=== PATIENT | female | born 1960 | race Caucasian/White ===

== ENCOUNTER → 2016-08-26 | Day surgery (SDC) | payer OTHER ==
[2016-08-20 13:50] VITALS: Ht 165.1 cm; Wt 131.8 kg
[~2016-08-26] VITALS: Ht 165.1 cm; Wt 131.8 kg
[~2016-08-26] MED LIST: ALBU1AER9 INH; ASPI81TA82 PO; ATOR-24 PO; BUSP-8 PO; CALC500C70 PO; CLON0.5T3 PO; COQ10 PO; CYM60 PO; FENTANYL CITRATE INJ 50 MCG/1 ML 2 ML VIAL ONE; FLAX1CAP11 PO; GABA-112 PO; GABA1CAP PO; GLUCTAB7 PO; LAMO150T32 PO; LIDOCAINE HCL 2% 2 ML VIAL (20MG/ML) ONE; OLIV500C PO; PROPOFOL IV EMULSION 10 MG/ML 20 ML VIAL IV ONE; SODIUM CHLORIDE 0.9% 500ML 500 ML IV ONE
--- NOTE | 2016-08-26 08:21 | Endo History and Physical ---
History & Physical Date of Service: August 26, 2016. Chief Complaint: Hx Polyps Referring Physician: Anne Valdez History of Present Illness 56 yo presenting for f/u Colonoscopy after procedure performed in 2016 with one polyp and suboptimal preparation. Past Medical History Other Psy. Disorders, Anxiety, High Cholesterol, Sleep Apnea, Depression Past Surgical History Hx Cardiac Surgery: No Hx Internal Defibrillator: No Hx Pacemaker: No Hx Abdominal Surgery: Yes (TUBAL LIGATION) Hx Post-Op Nausea and Vomiting: No Hx Cancer Surgery: No Hx Thoracic Surgery: No Hx Orthopedic: No Hx Urinary Tract Surgery: No Family History None Social History Smoking Status: Never Smoker Hx Substance Use: No Hx Alcohol Use: Yes (VERY RARELY) Allergies Coded Allergies: Sulfa Drugs (Unverified Allergy, Mild, RASH ON BACK, 08/20/16) Current Medications Reported Home Medications Medications Dose Route/Sig Max Daily Dose Days Date Category [place] Extract ([place] (Elton Europaea)) 1 Cap Cap 1 Cap PO QAM 08/20/16 Reported Glucosamine Chondroitin (Zztkdmzmwfg-Mswhkmxdkve-Lly C-) 1 Tab Tab 1 Tab PO QAM 08/20/16 Reported [Coq10] 1 Cap PO QAM 08/20/16 Reported Flax Seed Oil (Flaxseed (Linseed)) 1 Cap Cap 1 Cap PO BID 08/20/16 Reported Lamictal (Lamotrigine) 150 Mg Tab 150 Mg PO BID 08/20/16 Reported Neurontin (Gabapentin) 100 Mg Cap 200 Mg PO HS 08/20/16 Reported Buspirone Hcl 10 Mg Tab 1.5 Tab PO BID 08/18/15 Reported Os-Tao 500 Plus D (Calcium/Vitamin D) Tab 1 Tab PO QAM 08/18/15 Reported Aspirin 81 Mg Tab 81 Mg PO QAM 09/09/12 Reported Proair Hfa (Albuterol) Aers 2 Puffs INH Q4 PRN 09/09/12 Reported Klonopin (Clonazepam) 0.5 Mg Tab 0.5 Mg PO HS PRN 09/09/12 Reported Neurontin (Gabapentin) 100 Mg Cap 100 Mg PO QAM 09/09/12 Reported Lipitor (Atorvastatin Calcium) 40 Mg Tab 40 Mg PO QAM 09/09/12 Reported Cymbalta * (Duloxetine HCl) 60 Mg Cap 60 Mg PO BID 04/10/07 Reported Vital Signs Weight (Kilograms): 131.82 Height (Feet): 5 Height (Inches): 5 Date Time Temp Pulse Resp B/P Pulse Ox O2 Delivery O2 Flow Rate FiO2 08/26/16 08:17 36.7 112 20 147/91 94 Room Air Physical Exam General Appearance: WD/WN, no apparent distress Respiratory/Chest: Respiratory effort: no dyspnea Auscultation: breath sounds normal, CTA except as noted, no wheezing Cardiovascular: Apical Impulse: not displaced Heart Auscultation: RRR, normal S1, normal S2 Abdomen: Bowel Sounds: normal Inspection & Palpation: soft Assessment and Plan 56 yo presenting for f/u colonoscopy for hx of polyps
--- NOTE | 2016-08-26 09:23 | GI REPORT ---
Procedure Date: 08/26/2016 8:25 AM Procedure: Colonoscopy Indications: High risk colon cancer surveillance: Personal history of colonic polyps Medicines: General Anesthesia Complications: No immediate complications. Estimated blood loss: None. Estimated Blood Loss: Estimated blood loss: none. Procedure: Pre-Anesthesia Assessment: - Pre-Anesthesia Assessment: - Prior to the procedure, a History and Physical was performed, and patient medications, allergies and sensitivities were reviewed. The patient's tolerance of previous anesthesia was reviewed. Please see trivago for complete details. - The risks and benefits of the procedure and the sedation options and risks were discussed with the patient. All questions were answered and informed consent was obtained. - Patient identification and proposed procedure were verified prior to the procedure by the physician and the nurse. The procedure was verified in the pre-procedure area in the procedure room. After obtaining informed consent, the endoscope was passed carefully and meticuously under direct vision and only advanced when the lumen was clearly identified, C02 insuflation was utilized throughout the entirity of the procedure. Throughout the procedure, the patient's blood pressure, pulse, and oxygen saturations were monitored continuously. After I obtained informed consent, the scope was passed under direct vision. Throughout the procedure, the patient's blood pressure, pulse, and oxygen saturations were monitored continuously. The On-site loaner was introduced through the anus and advanced to the cecum, identified by appendiceal orifice and ileocecal valve. The colonoscopy was performed without difficulty. The patient tolerated the procedure well. The quality of the bowel preparation was fair. Findings: A 3 mm polyp was found in the transverse colon. The polyp was sessile. The polyp was removed with a cold snare. Resection and retrieval were complete. The terminal ileum appeared normal. Multiple small-mouthed diverticula were found in the sigmoid colon. Internal hemorrhoids were found during retroflexion. The exam was otherwise without abnormality on direct and retroflexion views. Impression: - One 3 mm polyp in the transverse colon, removed with a cold snare. Resected and retrieved. - The examined portion of the ileum was normal. - Diverticulosis in the sigmoid colon. - Internal hemorrhoids. - The examination was otherwise normal on direct and retroflexion views. Recommendation: - Discharge patient to home (with escort). - Repeat colonoscopy for surveillance based on pathology results. Jass Ventura MD 08/26/2016 9:23:28 AM This report has been signed electronically. Note Initiated On: 08/26/2016 8:25 AM I attest to the content of the Intraoperative Record and orders documented therein, exceptions below
--- NOTE | 2016-08-26 09:37 | Discharge Instructions ---
Endoscopy Patient Instructions Date / Procedure(s) Performed August 26, 2016. Colonoscopy Allergy Information Coded Allergies: Sulfa Drugs (Unverified Allergy, Mild, RASH ON BACK, 08/20/16) Discharge Date / Findings August 26, 2016. One small polyp removed Suboptimal prep Medication Instructions Stopped Medication(s): ASA Provider Instructions Activity Restrictions - No exercising or heavy lifting for 24 hours. - Do not drink alcohol the day of the procedure. - Do not drive a car or operate machinery until the day after the procedure. - Do not make any important decisions or sign important papers in 24 hours after the procedure. Following Day: - Return to full activity which may include returning to work/school. Diet Start your diet with liquids and light foods (jello, soup, juice, toast). Then eat your usual diet if not nauseated. Treatment For Common After Affects For mild abdominal pain, bloating, or excessive gas: - Rest - Eat lightly - Lie on right side Follow-Up Information Follow-up with Anne Valdez as scheduled Anesthesia Information What You Should Know You have had a procedure that required some medicine to reduce anxiety and discomfort. This treatment is called moderate sedation. After receiving the treatment, you may be sleepy, but you will be able to breathe on your own. The effects of the treatment may last for several hours. Follow these instructions along with Activity/Diet recommendations noted above: * Do NOT do anything where dizziness or clumsiness would be dangerous. * Rest quietly at home today, then you can be up and about tomorrow. * Have a responsible person stay with you the rest of today. * You may have had an I.V. today. If so, you may take the dressing off later today. Recommendations Call your doctor if: * Trouble breathing * Continuous vomiting for more than 24 hours * Temperature above 101 degrees * Severe abdominal pain or bloating * Pain not relieved by pain medicine ordered * There is increased drainage or redness from any incision * A large amount of rectal bleeding greater than 2-3 tablespoons. (If you had a polyp/s removed or have hemorrhoids, a small amount of blood - from the rectum is to be expected.) * You have any unanswered questions or concerns. IN THE EVENT OF A SERIOUS EMERGENCY, GO TO THE NEAREST EMERGENCY ROOM Your discharge instructions were prepared by provider Jass Ventura. Patient Instructions Signature Page Elsa Wolfe Patient (or Guardian) Signature/Date: I have read and understand the instructions given to me by my caregivers. Caregiver/RN/Doctor Signature/Date: The above-named patient and/or guardian has received patient instructions on this date. + Original Patient Signature Page (only) stays with chart. Please make copy for patient.
--- NOTE | 2016-08-26 09:37 | Endo History and Physical ---
History & Physical Date of Service: August 26, 2016. Chief Complaint: Hx Polyps Referring Physician: Anne Valdez History of Present Illness 56 yo presenting for f/u Colonoscopy after procedure performed in 2016 with one polyp and suboptimal preparation. Past Medical History Other Psy. Disorders, Anxiety, High Cholesterol, Sleep Apnea, Depression Past Surgical History Hx Cardiac Surgery: No Hx Internal Defibrillator: No Hx Pacemaker: No Hx Abdominal Surgery: Yes (TUBAL LIGATION) Hx Post-Op Nausea and Vomiting: No Hx Cancer Surgery: No Hx Thoracic Surgery: No Hx Orthopedic: No Hx Urinary Tract Surgery: No Family History None Social History Smoking Status: Never Smoker Hx Substance Use: No Hx Alcohol Use: Yes (VERY RARELY) Allergies Coded Allergies: Sulfa Drugs (Unverified Allergy, Mild, RASH ON BACK, 08/20/16) Current Medications Reported Home Medications Medications Dose Route/Sig Max Daily Dose Days Date Category [place] Extract ([place] ([place] Europaea)) 1 Cap Cap 1 Cap PO QAM 08/20/16 Reported Glucosamine Chondroitin (Kumqqjjbzfh-Scvrtaiwpxp-Dfn C-) 1 Tab Tab 1 Tab PO QAM 08/20/16 Reported [Coq10] 1 Cap PO QAM 08/20/16 Reported Flax Seed Oil (Flaxseed (Linseed)) 1 Cap Cap 1 Cap PO BID 08/20/16 Reported Lamictal (Lamotrigine) 150 Mg Tab 150 Mg PO BID 08/20/16 Reported Neurontin (Gabapentin) 100 Mg Cap 200 Mg PO HS 08/20/16 Reported Buspirone Hcl 10 Mg Tab 1.5 Tab PO BID 08/18/15 Reported Os-[place]ao 500 Plus D (Calcium/Vitamin D) Tab 1 Tab PO QAM 08/18/15 Reported Aspirin 81 Mg Tab 81 Mg PO QAM 09/09/12 Reported Proair Hfa (Albuterol) Aers 2 Puffs INH Q4 PRN 09/09/12 Reported Klonopin (Clonazepam) 0.5 Mg Tab 0.5 Mg PO HS PRN 09/09/12 Reported Neurontin (Gabapentin) 100 Mg Cap 100 Mg PO QAM 09/09/12 Reported Lipitor (Atorvastatin Calcium) 40 Mg Tab 40 Mg PO QAM 09/09/12 Reported Cymbalta * (Duloxetine HCl) 60 Mg Cap 60 Mg PO BID 04/10/07 Reported Vital Signs Weight (Kilograms): 131.82 Height (Feet): 5 Height (Inches): 5 Date Time Temp Pulse Resp B/P Pulse Ox O2 Delivery O2 Flow Rate FiO2 08/26/16 09:20 92 16 113/86 95 Room Air 08/26/16 08:17 36.7 112 20 147/91 94 Room Air Physical Exam Respiratory/Chest: Respiratory effort: no dyspnea Auscultation: breath sounds normal, CTA except as noted, no wheezing Assessment and Plan proceed with colon for polyp f/u
--- NOTE | 2016-08-26 09:42 | Anesthesiology Progress Note ---
Anesthesia Post Op Note Date & Time August 26, 2016 at 09:42 Vital Signs Pain Intensity: 0 Vital Signs Past 12 Hours Date Time Temp Pulse Resp B/P Pulse Ox O2 Delivery O2 Flow Rate FiO2 08/26/16 09:35 96 18 127/95 97 Room Air 08/26/16 09:20 92 16 113/86 95 Room Air 08/26/16 08:17 36.7 112 20 147/91 94 Room Air Notes Mental Status: alert / awake / arousable, participated in evaluation Pt Amnestic to Procedure: Yes Nausea / Vomiting: adequately controlled Pain: adequately controlled Airway Patency, RR, SpO2: stable & adequate BP & HR: stable & adequate Hydration State: stable & adequate Anesthetic Complications: no major complications apparent
[2016-08-26 09:50] VITALS: BP 120/79; PULSE 87; O2SAT 95
== END | disposition home or self-care (01) ==
LOC: C.GI 07:46
PROVIDERS: ATTEND Internal Medicine
DX: Z12.11 Encounter for screening for malignant neoplasm of colon (principal); Z86.010 Personal history of colon polyps; D12.3 Benign neoplasm of transverse colon; K57.30 Diverticulosis of large intestine without perforation or abscess without bleeding; K64.8 Other hemorrhoids; Z79.82 Long term (current) use of aspirin; Z79.899 Other long term (current) drug therapy; E78.00 Pure hypercholesterolemia, unspecified; F41.9 Anxiety disorder, unspecified; F32.9 Major depressive disorder, single episode, unspecified; G47.30 Sleep apnea, unspecified

== ENCOUNTER → 2017-11-14 | Outpatient (CLI) | payer OTHER ==
[~2017-11-14] MED LIST changes: -CLON0.5T3 PO; -FENTANYL CITRATE INJ 50 MCG/1 ML 2 ML VIAL ONE; +GABA-1693 PO; -GABA1CAP PO; +KLN/5 PO; +LAMO150T PO; -LAMO150T32 PO; -LIDOCAINE HCL 2% 2 ML VIAL (20MG/ML) ONE; -PROPOFOL IV EMULSION 10 MG/ML 20 ML VIAL IV ONE; -SODIUM CHLORIDE 0.9% 500ML 500 ML IV ONE
--- NOTE | 2017-11-17 07:30 | PAP/PSG TECHNICIAN REPORT ---
[facility] Laceworker Polysomnogram Report Study name: None Report date: 11/15/2017 Study date: 11/14/2017 Referring Physician: Violette Sebastian Name: CATALINA CA Interpreting Physician: Haydee Johnson M.D. Date of : 1960 Laceworker: Makenzie Galicia, PSGT. Sex: Female Age: 57 StudyType: PSG Weight: 303 lbs Height: 57 years, Height 5' 5" BMI: 50.42 Medications: Lamotrigine 150 mg, Buspirone 15 mg, Klonopin 0.5 mg, Neurontin 100 mg, Cymbalta 60 mg, Atorvastatin 40 mg, Vit. -D 1000 units, Fluticasone Propionate 50 mcg, Pro Air HFA, Glucosamine, Coq10 100 mg, Flaxseed Oil, Apple Cider Vinegar 500 mg. Patient History 57-year-old female presents for a titration sleep study. Patient still snoring while c-pap is in use, she also states that she has poor dream recall, nocturia, and a change in cognition/concentration 16. The test is to be started at 8 cm h20. Parameters Monitored NPSG: E1-M2, E2-M1, Fp1-M2, Fp2-M1, F3-M2, F4-M2, F4-M1, C3-M2, C4-M2, C4-M1, O1-M2, O2-M2, O2-M1, T3-M2, T4-M1, P3-M2, P4-M1, CHIN1, CHIN2, HR, EKG, Legs, PFLOW, SNOR, FLOW, CFLOW, Tidal Volume, THOR, ABDO, SpO2, PLTH, CPRESS, ETCO2 Wave, ETCO2, pH Sleep Architecture Sleep Stages Time at Lights Off 10:59:03 PM STAGES Time (min.) TST (%) Time at Lights On 6:14:03 AM Wake 130.5 -- Total Recording Time (TRT) 406.50 min. N1 7.5 3 Total Sleep Period (TSP) 380.5 min. N2 164.5 60 Total Sleep Time (TST) 276.0min. N3 69.5 25 Awake Time 130.5 min. REM 34.5 13 Wake after Sleep Onset 134.0 min. Sleep Efficiency (SE) 68 % Sleep Onset Latency (BECKI) 25.0 min. Number of Stage 1 Shifts None Awakenings 19 Stage Changes 71 Number of REM periods 6 REM 34.5 13 REM Latency 316.5 min. NREM 241.5 88 Body Position Analysis Supine Right Left Side Prone Vertical Total Sleep Time (min.) 0.0 151.0 125.0 276.00 0.0 0.1 Total Sleep Time (%) 0% 55% 45% 100 0% N/A% Total Sleep Time REM (min.) 0.0 15.0 19.5 None 0.0 0.0 Total Sleep Time NREM (min.) 0.0 136.0 105.5 None 0.0 0.0 Intermittent Wake (min.) 0.0 29.8 100.6 None 0.0 0.1 Total Sleep Period (%) 0% None None None None None Arousals Myoclonus (PLM) * Events Count Index Events Count Index Spontaneous 54 12 Events Awake (PLMW) 6 2.8 Respiratory 0 0.0 Events Asleep w/ Arousal (PLMA) 13 2.8 PLM 13 3 Events Asleep w/o Arousal (PLMS) 166 36.1 Snoring 2 0 Total Asleep 179 38.9 Total 69 15 Total 185 27 Respiratory Analysis * CA OA MA CH H RERA Total Count 0 1 0 0 15 0 16 Index 0.0 0.2 0.0 0 3.3 0 3.5 Mean Duration 0.0 10.1 0.0 0.00 13.7 0.0 13.5 Longest Duration 0.0 10.1 0.0 0.00 0.0 0.0 23.5 Respiratory Event Summary Total Supine ~Supine Right Left Prone REM NREM Apneas Count 1 N/A 1 0 1 N/A 0 1 Index 0.2 N/A 0 0.0 0.5 N/A 0 0 Hypopneas (4% Desat) Count 15 N/A 15 9 6 N/A 3 12 Index 3.3 N/A 3 3.6 2.9 N/A 5.2 3.0 Apneas & All Hypopneas Count 16 N/A 16 9 7 N/A 3 13 Index 3.5 N/A 3 4 3 N/A 5.2 3.2 Respiratory Events (Social Media Job Titles+All Hyp+RERA) Count 16 N/A 16 9 7 N/A 3 13 Index 3.5 N/A 3 3.6 3.4 N/A 5.2 3.2 Respiratory Related Arousal Count 0 N/A 0 0 0 N/A 0 0 Index 0.0 N/A 0 0 0 N/A 0 0 Snoring Analysis Supine Right Left Prone REM NREM Total Snore duration 6.7 min Snores count N/A 48 272 N/A 10 310 320 Snore mean duration 1.3 Sec Snores index N/A 19 131 N/A 17.4 77.0 69.6 TST with snoring (%) 2.4% Desaturation Event Summary: Minimum %SpO2 Event Count Mean/Min/Max Duration(sec.) Desaturation Index % Time In Bed > 90 38 21.5 / 8.3 / 56.0 5.8 97.2 86 - 90 0 N/A 0.0 2.8 81 - 85 0 N/A 0.0 0.0 76 - 80 0 N/A 0.0 0.0 71 - 75 0 N/A 0.0 0.0 66 - 70 0 N/A 0.0 0.0 61 - 65 0 N/A 0.0 0.0 56 - 60 0 N/A 0.0 0.0 51 - 55 0 N/A 0.0 0.0 < 50 0 N/A 0.0 0.0 Total REM NREM Awake <50% 0.0 min. 0.0 min. 0.0 min. 0.0 min. 51 - 60% 0.0 min. 0.0 min. 0.0 min. 0.0 min. 61 - 70% 0.0 min. 0.0 min. 0.0 min. 0.0 min. 71 - 80% 0.0 min. 0.0 min. 0.0 min. 0.0 min. 81 - 90% 11.3 min. 0.2 min. 5.1 min. 6.1 min. 91 - 100% 391.0 min. 34.3 min. 236.4 min. 120.3 min. Average 93 94 93 93 Minimum SpO2 86 88 88 86 Desaturation Event Index 5.6 5.2 8.7 0.0 # Desat. Events below 89% 3 1 2 N/A Time(%) with Saturation below 89% 0.3 0.0 0.0 0.2 Time(min.) with Saturation below 89% 1.2 0.1 0.2 1.0 Heart Rate Analysis End Tidal CO2 Analysis Min (bpm) Max (bpm) Average (bpm) TSP (mins) % of TSP Awake 53 127 78 Above 55 mmHg 0.0 0.0 NREM 59 94 80 50-55 mmHg 0.0 0.0 REM 57 80 70 45-50 mmHg 276.0 100.0 Overall 57 94 79 40-45 mmHg 0.0 0.0 35-40 mmHg 0.0 0.0 30-35 mmHg 0.0 0.0 Average ETCO2 0.0 Supplemental O2 Values Minimum O2 level: None Value Start Time End Time Laceworker Comments PAP Study: slept in the right, left, supine positions. No cardiac arrhythmia or PLM's noted. No bruxism noted. CPAP was initiated at +8 CMH2O and up-titrated to an optimal level of +12 CMH2O, which nearly eliminated all respiratory events and snoring. A medium Res Origin Digital quattro air, was used during titration Ms. Ca awoke to use the restroom 1 time during the night. Ms. Ca stated, I did sleep as well as I do when I am in my own bed. The final report will be interpreted and signed by a sleep physician. The completed physician report will then be placed in the patient medical record Patient tolerated treatment well, her mask fit well and the leak was very minimal the entire study. Increases were made for snoring and respiratory events. The patient did talk a lot about stress and depression while the tech was hooking her up. When I walked into the patients room this morning she started to sob and cry saying she has nightmares about her job all the time and she stated "I have to get out of that job". Therapy Event: Therapy (cm H20) 0 8 9 10 11 12 Total Time at Pressure (min.) 7.2 29.7 32.2 108.1 170.4 59.0 TST at Pressure (min.) 0.0 11.9 30.7 92.1 100.9 40.5 # Periods 1 1 1 1 1 1 Sleep Onset (min.) N/A 17.8 0.0 0.0 0.0 0.0 REM Onset (min.) N/A N/A N/A N/A 164.3 0.0 Sleep Efficiency % 0 40 95 85 59 68 Wakefulness (%) 100.0 60.0 4.7 14.8 40.8 31.4 Wakefulness (min.) 7.2 17.8 1.5 16.0 69.5 18.5 NREM 1 (%) 0.0 1.7 1.6 0.5 3.2 0.8 NREM 1 (min.) 0.0 0.5 0.5 0.5 5.5 0.5 NREM 2 (%) 0.0 13.5 23.3 51.8 50.2 19.5 NREM 2 (min.) 0.0 4.0 7.5 56.0 85.5 11.5 NREM 3 (%) 0.0 24.8 70.5 33.0 2.2 0.0 NREM 3 (min.) 0.0 7.4 22.7 35.6 3.8 0.0 REM (%) 0.0 0.0 0.0 0.0 3.5 48.3 REM (min.) 0.0 0.0 0.0 0.0 6.0 28.5 # Arousals N/A 0 5 15 27 22 Arousal Index N/A 0.0 9.8 9.8 16.1 32.6 # Snore N/A 153 94 36 27 10 Snore Index N/A 773.8 183.9 23.4 16.1 14.8 AHI N/A 0.0 5.9 3.3 4.8 0.0 AHI Supine N/A N/A N/A N/A N/A N/A AHI Non-Supine N/A 0.0 5.9 3.3 4.8 0.0 NREM AHI N/A 0.0 5.9 3.3 3.2 0.0 REM AHI N/A N/A N/A N/A 29.8 0.0 RDI N/A 0.0 5.9 3.3 4.8 0.0 # Obstructive N/A 0 0 0 1 0 # Central Ap N/A 0 0 0 0 0 # Mixed N/A 0 0 0 0 0 # Hypopneas N/A 0 3 5 7 0 RERAS N/A 0 0 0 0 0 Total Respiratory Events N/A 0 3 5 8 0 Time Below SpO2 89.00% (min.) 0.0 0.0 0.0 0.1 0.1 0.1 Mean NREM SpO2 (%) N/A 92 93 92 93 93 Mean REM SpO2 (%) N/A N/A N/A N/A 94 94 Mean Sleep SpO2 (%) N/A 92 93 92 93 94 Min NREM SpO2 (%) N/A 90 89 88 88 91 Min REM SpO2 (%) N/A N/A N/A N/A 92 88 Position Supine (min.) 0.0 0.0 0.0 0.0 0.0 0.0 Position Non-supine (min.) 0.0 11.9 30.7 92.1 100.9 40.5 LM Index Sleep N/A 35.4 11.7 15.6 70.2 35.6 LM Index NREM N/A 35.4 11.7 15.6 71.5 20.0 LM Index REM N/A N/A N/A N/A 49.7 42.2 Mean Heart Rate (bpm) N/A 80 81 84 78 69 Min Heart Rate (bpm) N/A 73 75 77 67 57
--- NOTE | 2017-12-18 12:31 | Sleep Study ---
Sleep Study Report Date of Service: 12/18/17 Sleep Study Report Patient: CATALINA CA Test Date: 11/14/2017 Page 2 Study name: None Report date: 12/18/2017 Study date: 11/14/2017 Referring Physician: Violette Sebastian Name: CATALINA CA Interpreting Physician: Haydee Johnson M.D. Date of : 1960 Supply Specialist: Makenzie Galicia, PSGT. Sex: Female Age: 57 Study Type: PSG Weight: 303 lbs Height: 57 years, Height 5' 5" BMI: 50.42 CPAP TITRATION STUDY CATALINA CA, tested at 8:26:04 PM on 11/14/2017, is a 57 year old female, date of 1960 who is 5' 5" and 303 lbs, with a BMI of 50.42, which is elevated. This patient has an [place] Sleepiness Score of 12, which is abnormal. Study scored by: Haydee Johnson M.D. IMPRESSION: 1-At a CPAP setting of 12 cmH2O, the apnea-hypopnea and arousal indices were normalized. At this setting, snoring was eliminated and oxygen saturation was maintained above 87 %. 2-Abnormal sleep architecture likely due to respiratory events, PAP therapy and first night effect. RECOMMENDATIONS: CPAP 12 cmH2O with heated humidity with a medium ResMed Quattro Air full face mask. Past Medical History: PRAVIN Medications: Lamotrigine, Buspirone, Klonopin, Neurontin, Cymbalta, Atrovastatin, Vit.-D, Fluticasone, Pro Air HFA, Glucosamine, Coq10, Flaxseed Oil Sleep Study Summary Procedure: The study was attended continuously by a time study technologist. The monitored parameters included: left (E1-M2) and right (E2-M1) EOG, frontal (F3- M2 & F4-M1), central (C3-M2 & C4-M1) and occipital (O1-M2 & O2-M1) EEG, mental and submental EMG, left and right anterior tibialis EMG, left and right extensor digitorum EMG, single ECG waveform, snoring, continuous airflow with thermistor and nasal pressure transducer, chest and abdominal effort, oxygen saturation, EtCO2, and body position via video monitoring. Hypopnea definition: The nasal pressure signal excursions (or those of the alternative hypopnea sensor) drop by 30% of baseline. The duration of this drop occurs for a period lasting at least 10 seconds. There is a 4 % desaturation from pre-event baseline or the event is associated with an arousal. At least 90 % of the event's duration must meet the amplitude reduction criteria for hypopnea. Sleep Data: This patient displayed normal latency to sleep onset of 25.0 min., with disrupted sleep architecture with sleep stage percentages of 2% N1, 43% N2, 18% N3, and 9% REM, with reduced sleep efficiency of 68% and with Total Sleep Time of 276.0 minutes. Respiratory Data: 16 respiratory events were observed. The apnea-hypopnea index was 3.5 which is normal. The amounts of apneas/hypopneas are evenly distributed throughout the study, with a non-REM RDI of 3.2 and a REM RDI of 5.2. Respiratory events were more frequent in the supine position. The longest respiratory event duration was 23.5 sec. Minimum NREM oxygen saturation was 88%; minimum REM oxygen saturation was 88%. Time spent below SaO2 of 90% was 0.0 min. The time spent with SaO2 of 80-89% was 0 min. Snoring was noted to be present. Limb Movement: 179 limb movements were observed for an index of 38.9. Arousal: 69 arousals were observed, with a total index of 15. There were 54 spontaneous arousals, 0 respiratory arousals (respiratory arousal index of 0.0) , and 13 limb movement arousals (limb movement arousal index of 3). Rickie-Alvarado breathing was absent. Cardiac: The average heart rate during sleep was 79 beats per minute, with a range of 57 to 94. During wake, the heart rate ranged from 53 to 127 beats per minute. There were no arrhythmias noted. EEG: There were no epileptic form features reported. Behavioral Observation: The patient reported that their sleep for this study was the same in duration and of the same quality as usual. The patient did not display unusual behaviors Titration Data: Nasal CPAP was introduced and titrated from 8 cmH2O to 12 cmH2O Snoring was eliminated at 12 cmH2O of pressure. Optimal pressure appears to be 12 cmH2O in terms of improving the patient's quality of sleep, snoring and apnea. The patient was titrated on a medium ResMed Quattro Air mask. Thank you for the courtesy of this referral. Dr Haydee Johnson Board Certified in Internal/ Sleep Medicine
== END | disposition home or self-care (01) ==
LOC: C.NEUR 20:00
PROVIDERS: ATTEND Nurse Practitioner Family
DX: G47.33 Obstructive sleep apnea (adult) (pediatric) (principal)